=== PATIENT | male | born 1930 | race Caucasian/White ===

== ENCOUNTER → 2017-08-02 10:03 | Outpatient (CLI) | payer MEDICARE, BC ==
[~2017-08-02 10:03] MED LIST: BAYER CHEWABLE81 MG PO; COUMADIN2 MG PO; FLAXSEED OIL1000 MG; LOVENOX60 MG/0.6 SC; SYNTHROID50 MCG PO; VITAMIN D5000 UNIT PO
== END | disposition home or self-care (01) ==
LOC: D.CT 10:00
PROVIDERS: Family Medicine
DX: I73.9 Peripheral vascular disease, unspecified (principal)

== ENCOUNTER → 2017-09-28 08:48 | Outpatient (CLI) | payer MEDICARE, BC | END | disposition home or self-care (01) | LOC: D.US 09-26 16:30 | DX: I65.23 Occlusion and stenosis of bilateral carotid arteries (principal) ==

== ENCOUNTER → 2017-11-27 14:52 | Outpatient (CLI) | payer MEDICARE, BC | END | disposition home or self-care (01) | LOC: D.RAD 14:52 | DX: J40 Bronchitis, not specified as acute or chronic (principal); R05 Cough; J18.9 Pneumonia, unspecified organism ==

== ENCOUNTER → 2018-09-06 08:01 | Outpatient (CLI) | payer MEDICARE, BC | END | disposition home or self-care (01) | LOC: D.US 08-28 13:00 | PROVIDERS: ATTEND Internal Medicine Cardiovascular Disease | DX: I65.23 Occlusion and stenosis of bilateral carotid arteries (principal) ==

== ENCOUNTER → 2019-09-03 12:41 | Outpatient (CLI) | payer MEDICARE, BC | END | disposition home or self-care (01) | LOC: D.US 08:00 | PROVIDERS: ATTEND Internal Medicine Cardiovascular Disease | DX: I65.23 Occlusion and stenosis of bilateral carotid arteries (principal) ==